=== PATIENT | female | born 1985 | race Caucasian/White ===

== ENCOUNTER 2023-12-15 07:39 | Emergency (ER) | payer OTHER ==
[~2023-12-15] VITALS: Ht 160 cm; Wt 54.4 kg
[2023-12-15 07:42] VITALS: BP_SYST 107; PULSE 66; RESP 18; TEMP 98.2; O2SAT 97
[2023-12-15 08:10] LABS: EOSINOPHILS % (AUTO) 0.9 % (0.0-4.0); HEMOGLOBIN 12.5 g/dL (12.0-16.0); LYMPHOCYTES # (AUTO) 1.8 K/uL (1.0-5.5); LYMPHOCYTES % (AUTO) 41.3 % (20.5-51.5); MEAN CORPUSCULAR HEMOGLOBIN 31 pg (27-31); MEAN CORPUSCULAR HGB CONC 34 % (32-36); MEAN CORPUSCULAR VOLUME 92 fL (79.0-98.0); MONOCYTES # (AUTO) 0.3 K/uL (0.0-1.0); MONOCYTES % (AUTO) 6.3 % (1.7-9.3); NEUTROPHILS # (AUTO) 2.2 K/uL (1.8-7.7); NEUTROPHILS % (AUTO) 50.5 % (40.0-70.0); PLATELET COUNT (AUTO) 216 K/uL (130-430); RED BLOOD CELL COUNT(AUTO) 4.03 MIL/uL (4.2-6.2); RED CELL DISTRIBUTION WIDTH 12.9 % (9.0-15.0); WHITE BLOOD COUNT (AUTO) 4.3 K/uL (4.8-10.8)
[2023-12-15 08:18] LABS: BILIRUBIN,URINE NEGATIVE (NEGATIVE); BLOOD, URINE NEGATIVE (NEGATIVE); CLARITY/URINE CLEAR (CLEAR); COLOR,URINE YELLOW (YELLOW); GLUCOSE,URINE NEGATIVE (NEGATIVE); KETONES,URINE NEGATIVE (NEGATIVE); LEUKOCYTE ESTERASE ,URINE TRACE (NEGATIVE); NITRITE, URINE NEGATIVE (NEGATIVE); PROTEIN URINE NEGATIVE (NEGATIVE); UROBILINOGEN,URINE 0.2 (0.2-1.0)
[2023-12-15] MEDS: DICYCLOMINE HCL 20 MG/2 ML AMP IM ONE (08:28)
[2023-12-15] MEDS: KETOROLAC TROMETHAMINE 15 MG VIAL IVP ONE (08:28)
[2023-12-15] MEDS: ONDANSETRON HCL 4 MG/2 ML VIAL IVP ONE (08:29)
[2023-12-15] MEDS: NACL 0.9% 1,000 ML IV ONE ×2 (08:29→08:45)
[2023-12-15 08:44] LABS: BACTERIA,URINE FEW /HPF (None Seen); RBC,URINE NONE SEEN /HPF (0-3)
[2023-12-15 09:09] LABS: ALBUMIN 3.2 g/dL (3.4-4.8); BILIRUBIN,DIRECT 0.1 mg/dL (0.0-0.3); CALCIUM 8.3 mg/dL (8.4-11.0); CREATININE 0.8 mg/dL (0.55-1.30); POTASSIUM 3.6 mmol/L (3.5-5.1); TOTAL BILIRUBIN 0.5 mg/dL (0.0-1.0); TOTAL PROTEIN, SERUM 6.7 g/dL (6.4-8.3)
[2023-12-15] MEDS ORDERED: DICY-14 PO (10:09)
[2023-12-15] MEDS ORDERED: ONDA-8 TL (10:09)
[2023-12-15 10:22] VITALS: BP_SYST 106; PULSE 66; RESP 15; O2SAT 99
== END 2023-12-15 10:29 | disposition home or self-care (01) ==
LOC: SED 07:39
DX: K58.9 Irritable bowel syndrome, unspecified (principal); R10.84 Generalized abdominal pain; R11.2 Nausea with vomiting, unspecified; Z90.49 Acquired absence of other specified parts of digestive tract; Z79.899 Other long term (current) drug therapy; Z79.2 Long term (current) use of antibiotics
CPT/HCPCS: 99284; 96374; 96375; 96361; 80076; 80048; 81001; 83690; 85025; 36415; 81025; J0500; J1885; J2405; J7030; 81000; 81015